=== PATIENT | female | born 1995 ===

== ENCOUNTER 2018-09-07 00:08 | Inpatient (IN) | payer MEDICAID ==
--- NOTE | 2018-09-07 00:43 | C.PDOC ---
History Of Present Illness 23 year old female with PMHx of bipolar disorder presents to the ED complaining of depression. She reports she was feeling depressed and took 20 tablets of Zoloft. Reports SI but denies any HI. Chief Complaint (Nursing): Psychiatric Evaluation History Per: Patient History/Exam Limitations: no limitations Onset/Duration Of Symptoms: Hrs Current Symptoms Are (Timing): Still Present Suicide/Self Injury Attempted (Context): Ingestion Associated Symptoms: Depression, Suicidal Thoughts Past Medical History Reviewed: Historical Data, Nursing Documentation, Vital Signs Vital Signs: Last Vital Signs Temp 98.6 F 09/07/18 00:19 Pulse 97 H 09/07/18 00:19 Resp 20 09/07/18 00:19 BP 123/77 09/07/18 00:19 Pulse Ox 100 09/07/18 00:19 - Medical History PMH: Bipolar Disorder, Personality Disorder Surgical History: No Surg Hx Family History: States: No Known Family Hx - Social History Hx Alcohol Use: Yes Hx Substance Use: No - Immunization History Hx Tetanus Toxoid Vaccination: No Hx Influenza Vaccination: Yes Hx Pneumococcal Vaccination: No Review Of Systems Except As Marked, All Systems Reviewed And Found Negative. Psych: Positive for: Depression, Suicidal ideation Physical Exam - Physical Exam Appears: Non-toxic Skin: Warm, Dry, No Rash Head: Normacephalic Eye(s): bilateral: Normal Inspection Nose: Normal Oral Mucosa: Moist Neck: Normal ROM, Supple Cardiovascular: Rhythm Regular Respiratory: Normal Breath Sounds, No Rales, No Rhonchi, No Wheezing Gastrointestinal/Abdominal: Soft, No Tenderness Extremity: Normal ROM Neurological/Psych: Oriented x3, Normal Speech Gait: Steady ED Course And Treatment - Laboratory Results Result Diagrams: 09/07/18 00:52 09/07/18 00:52 ECG: Interpreted By Nc, Viewed By Nc ECG Rhythm: Sinus Rhythm ECG Interpretation: Normal, No Acute Changes Interpretation Of ECG: NSR, normal tracings. Rate From EC O2 Sat by Pulse Oximetry: 100 (RA) Pulse Ox Interpretation: Normal - Radiology CXR: Interpreted by Me CXR Interpretation: Yes: No Acute Disease, Other (nomal chest film). No: Infiltrates Reevaluation Time: 03:58 (Perwsisted to be alert, stable.) Reassessment Condition: Unchanged (0400H medically cleared for [facility] Medical Decision Making Medical Decision Making: Plan - 1:1 Observation Disposition Discussed With : Meño Mulligan Doctor Will See Patient In The: Hospital Counseled Patient/Family Regarding: Diagnosis - Disposition Disposition: HOSPITALIZED Disposition Time: 05:28 Condition: STABLE Forms: [facility] ([place]) - POA Present On Arrival: None - Clinical Impression Clinical Impression: Bipolar 1 disorder, depressed - Scribe Statement The provider has reviewed the documentation as recorded by the Lucilaibe Yadira Salcido All medical record entries made by the Tammy were at my direction and personally dictated by me. I have reviewed the chart and agree that the record accurately reflects my personal performance of the history, physical exam, medical decision making, and the department course for this patient. I have also personally directed, reviewed, and agree with the discharge instructions and disposition.
[2018-09-07 00:56] LABS: BASO % 0.4 % (0.0-2.0); EOS # 0.1 K/uL (0.0-0.7); EOS % 2.2 % (0.0-4.0); HEMOGLOBIN 11.9 g/dL (11.0-16.0); LYMPH # 1.3 K/uL (1.0-4.3); LYMPH % 21.4 % (20.0-40.0); MEAN CELL VOLUME 85.2 fL (81.0-99.0); MEAN CORPUSCULAR HEMOGLOBIN 28.5 pg (27.0-31.0); MEAN CORPUSCULAR HGB CONC 33.4 g/dL (33.0-37.0); MEAN PLATELET VOLUME 7.8 fL (7.2-11.7); MONO # 0.5 K/uL (0.0-0.8); MONO % 7.9 % (0.0-10.0); NEUT % 68.1 % (50.0-75.0); NRBC % 0.1 % (0.0-2.0); RBC 4.19 Mil/uL (3.80-5.20); RED CELL DISTRIBUTION WIDTH 13.9 % (11.5-14.5)
[2018-09-07 01:10] LABS: ALB/GLOB RATIO 1.4 (1.0-2.1); ALBUMIN 4.4 g/dL (3.5-5.0); ALT/SGPT 17 U/L (9-52); AST/SGOT 18 U/L (14-36); BLOOD UREA NITROGEN 12 mg/dL (7-17); CALCIUM 9.2 mg/dl (8.6-10.4); GFR NON-AFRICAN AMERICAN > 60
[2018-09-07 01:11] LABS: ACETAMINOPHEN < 10.0 ug/mL (10.0-30.0); SALICYLATE < 1.0 mg/dL 1
[2018-09-07 01:16] LABS: BARBITURATES, UR NEGATIVE (NEGATIVE); BENZODIAZEPINES, UR NEGATIVE (NEGATIVE); OPIATES, UR NEGATIVE (NEGATIVE); PHENCYCLIDINE, UR NEGATIVE (NEGATIVE)
[2018-09-07 05:45] LABS: SQUAMOUS EPITHIAL 8 /hpf (0-5); URINE BACTERIA FEW (<OCC); URINE BILIRUBIN NEGATIVE (NEGATIVE); URINE BLOOD NEGATIVE (NEGATIVE); URINE CLARITY Hazy (Clear); URINE COLOR Yellow (YELLOW); URINE GLUCOSE (UA) NORMAL (Normal); URINE LEUKOCYTE ESTERASE TRACE Leu/uL (Negative); URINE PROTEIN NEGATIVE (NEGATIVE); URINE UROBILINOGEN NORMAL mg/dL (0.2-1.0)
--- NOTE | 2018-09-07 06:42 | PCM.BM ---
<Sudhakar Chapin - Last Filed: 09/07/18 06:40> Treatment Plan Problems - Problems identified on initial assessmt DEPRESSION Date Initiated: 09/07/18 Time Initiated: 06:20 Assessment reference: NA Status: Active SUICIDAL IDEATION Date Initiated: 09/07/18 Time Initiated: 06:20 Assessment reference: NA Status: Active Treatment assets and liabiliti Patient Assests: adapts well, cooperative, self-reliant, ADL independent, physically healthy, negotiates basic needs Patient Liabilities: financial problems, poor support system, relationship conflicts - Milieu Protocol Maintain good personal hygiene: daily Encourage regular showers, daily Remind patient to perform daily oral care, daily Assist patient to perform ADL's Maintain personal safety: every shift Educate patient to report safety concerns to staff, every shift Monitor environment for contraband/sharps Medication safety: Monitor for expected outcome, potential side effects: every shift, Assess barriers to learning: every shift, Assess readiness for medication education: every shift <Brook Martinez - Last Filed: 09/09/18 11:14> - Diagnosis (1) Bipolar 1 disorder, depressed Status: Acute Interventions: 09/09/18 11:14 * Assess/adjust medications daily and /or as needed * See patient on an individual basis 7x/week to assess level of manic behaviors and stability * Discuss risks, benefits, side effects and alternatives of medications * <Elizabeth Walter - Last Filed: 09/09/18 13:16> Family Contact Family involvement: Famliy/SO not involved - Goals for Treatment Patient goals for treatment: "I want outpatient treatment." Discharge/Continuing Care - Education Needs Education Needs: Patient Medication, Patient Coping Skills - Discharge Discharge Criteria: Tolerates medication w/o severe side effects, Free of Suicidal thoughts, Reduction of target symptoms Discharge to:: Home, With Family - Treatment Team Participation Discussed with Family/SO: No Was Patient/Family/SO present at Treatment Team Meeting: Yes
--- NOTE | 2018-09-07 09:04 | RAD ---
Date of service: 09/07/2018 HISTORY: Overdose COMPARISON: No prior. TECHNIQUE: Chest PA and lateral FINDINGS: LUNGS: No active pulmonary disease. PLEURA: No significant pleural effusion identified. No pneumothorax apparent. CARDIOVASCULAR: No aortic atherosclerotic calcification present. Normal cardiac size. No pulmonary vascular congestion. OSSEOUS STRUCTURES: No questionable side bending to the right versus mild convex levoscoliosis. VISUALIZED UPPER ABDOMEN: Normal. OTHER FINDINGS: None. IMPRESSION: No active disease.
[2018-09-08 07:16] VITALS: O2SAT 96
[2018-09-08] MEDS ORDERED: Pneumococcal 23-Valent Vaccine IM ONE (10:00)
--- NOTE | 2018-09-09 11:13 | PCM.PYCHPN ---
Psychiatric Progress Note - Psychiatric Progress Note Patient seen today, length of contact: 15 min Patient Chief Complaint: I am feeling depressed.' Problems Identified/Issues Discussed: Patient seen and evaluated, chart reviewed and discussed with the nurse. Pt reports depressed mood, and reports feelings of hopelessness and helplessness. She still reports irritability and agitation. She remained isolated and withdrawn, and confined to his room. She denies any auditory hallucinations, visual hallucinations, or any paranoia. Patient is compliant with medications and denies any side effects. Symptoms are improving but pt needs more time to stabilize. Support and psychoeducation given. Medication Change: Yes Medical Record Reviewed: Yes Mental Status Examination - Cognitive Function Orientation: Person, Place, Situation, Time Memory: Intact Attention: WNL Concentration: Poor Association: WNL Fund of Knowledge: Poor - Mood Mood: Depressed, Anxious - Affect Affect: Constricted - Speech Speech: Soft - Formal Thought Process Formal Thought Process: No Impairment - Suicidal Ideation Suicidal Ideation: No - Homicidal Ideation Homicidal Ideation: No Goal/Treatment Plan - Goal/Treatment Plan Need for Continued Stay: Severe depression anxiety, Severe functional impairment Progress Toward Problem(s) and Goals/Treatment Plan: Bipolar disorder MRE depressed severe without psychotic features Generalized anxiety disorder CBT Psychoeducation Supportive therapy, group therapy, individual therapy Olanzapine 5 mg PO HS Trazodone 50 mg by mouth daily at bedtime Hydroxyzine 25 mg by mouth every 6 hours when necessary Gabapentin 100 mg po TID Prozac 20 mg PO daily - Smoking Cessation Smoking Cessation Initiated: No
--- NOTE | 2018-09-09 13:50 | CARD ---
APPROVED REPORT Date of service: 09/07/2018 EKG Measurement Heart [id number] <Conclusion> Normal sinus rhythm Normal ECG
--- NOTE | 2018-09-09 20:53 | PCM.PSYCH ---
Initial Psychiatric Evaluation - Initial Psychiatric Evaluation Legal Status: Capacity Chief Complaint (in patient's own words): I AM MISERABLE Patient's Reaction to Hospitalization: I FEEL SAFE HERE. History of Present Illness and Precipitating Events: PT IS A 23 YEAR OLD ESTRANGED FROM DOMICILED WITH GIRL FRIEND WORKING A [employer] WHO OVERDOSED ON 40 PILLS OF ZOLOFT. PT IS ANHEDONIC, ANERGIC AFD HAS AVOLITION. PT HAS HAD THREE PREVIOUS HOSPITALIZATION USUALLY FOR SUICIDAL IDEATION. PT HAS BEEN FOR SEVERAL MONTHS AND ABOUT A YEAR. PT LEFT HER BECAUSE HER CHEATED ON HER. PT FEELS SHEB I9S SELLING HER SELF SHORT PT STATES SHE IS AFRAID TO LIVE BUT ALSO AFRAID TO . PAST PSYCH HX PT HAS HAD 3 PREVIOUS HOSPITALIZATION USUALLY FOR SUICIDAL IDEATION FAMILY PSYCH HX AUNT IS BIPOLAR. GREAT AUNT IS BIPOLAR MOTHER HAS OCD FATHER HAS ANGER ISSUES LEGAL HX NONE SUBSTANCE ABUSE HISTORY NONE HX NONE MEDICAL HX NONE SOCIAL HISTORY MOTHER AND FATHER BEFORE PT WAS BORN HAS A HALF SISTER AND TWO STEP BROTHERS PT GRADUATED HIGH SCHOOL SHE HAS NO CHILDREN LEGAL NONE SUBSTANCE ABUSE NOTHING Current Medications: Active Medications Generic Name Dose Route Start Last Admin Trade Name Freq PRN Reason Stop Dose Admin Fluoxetine HCl 20 mg 09/08/18 10:00 09/09/18 10:05 Prozac PO 20 mg DAILY MARITZA Administration Hydroxyzine HCl 25 mg 09/09/18 12:00 Atarax PO Q6 PRN Anxiety Olanzapine 5 mg 09/09/18 22:00 Zyprexa PO HS [facility] Past Psychiatric History - Past Psychiatric History Prior Professional Help: SEE HPI Pertinent Medical Hx (Current Medical&Sleep Prob, Allergies): Allergies Allergy/AdvReac Type Severity Reaction Status Date / Time amoxicillin [From Augmentin] Allergy Verified 09/07/18 00:24 clavulanic acid Allergy Verified 09/07/18 00:24 [From Augmentin] No Known Home Med 09/07/18 Review of Systems - EENT Eyes: UNREMARKABLE Ears: UNREMARKABLE Nose/Mouth/Throat: UNREMARKABLE - Breasts Breasts: UNREMARKABLE - Cardiovascular Cardiovascular: UNREMARKABLE - Respiratory Respiratory: UNREMARKABLE - Gastrointestinal Gastrointestinal: UNREMARKABLE - Genitourinary Genitourinary: UNREMARKABLE - Reproductive: Female Reproductive:Female: UNREMARKABLE - Menstruation Menstruation: UNREMARKABLE - Musculoskeletal Musculoskeletal: UNREMARKABLE - Integumentary Integumentary: UNREMARKABLE - Neurological Neurological: UNREMARKABLE - Psychiatric Psychiatric: Abnormal Sleep Pattern, Anhedonia, Anxiety, Depression, Hopelessness, Suicidal Ideation - Endocrine Endocrine: UNREMARKABLE - Hematologic/Lymphatic Hematologic: UNREMARKABLE Mental Status Examination - Personal Presentation Personal Presentation: Looks younger than stated age - Affect Affect: Constricted - Motor Activity Motor Activity: Calm - Reliability in Providing Information Reliability in Providing Information: Good - Speech Speech: Organized, Relevant, Coherent - Mood Mood: Depressed, Anxious - Formal Thought Process Formal Thought Process: No Impairment - Cognitive Functions Orientation: Person, Place, Situation, Time Sensorium: Alert Attention/Concentration: Attentive Abstract Thinking: As evidence by literal perception of proverbs Estimate of Intelligence: Average Judgement: Intact, as evidence by: Good judgement Memory: Recent intact, as evidence by: 3/3 object recall, Remote intact, as evidenced by: Abilit to recall sig. life events - Risk Risk: Suicidal - Strength & Assets Inventory Strength & Assets Inventory: Intelligence, Education, Employment history, Cooperative - Limitations Limitations: Other DSM 5 DX - DSM 5 DSM 5 Diagnosis: BIPOAR DISORDER DEPRESSED TYPE PROZAC [place] CBT SUPPORTIVE PSYCHOTHERAPY GROUP MILIEU RECREATIONBAL THERAPY - Recommended/Plan of Treatment Treatment Recommendations and Plan of Treatment: SEE ABOVE Prognosis: FAIR Discharge Plan and Discharge Criteria: NO LONGER SUICIDAL TIME 34 MINUTES - Smoking Cessation Smoking Cessation Initiated: No
--- NOTE | 2018-09-09 20:54 | PCM.PSYCH ---
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 PT HAS BEEN ON ZOLOFT AND STATES THAT IT CAUSES HER PALPITAYIONS AND ANXIETY PT HAS BEEN FOR ABOUT ONE YEAR BUT HER CHEATED ON CHELSIE. PT STATES THAT HER HAD CHEATED ON OTHERS BUT SHE WAS SO MUCH IN LOVE SHE IGNORED HER 'S PAST BEHAVIOR PT NOW LIVES WITH A NEW GIRL FRIEND. PT HAS NO CHILDREN. SHE FEELS SHE HAS NON ENERGY, LITTLE MOTIVATION AND IS ANHEDONIC. PT STATES SHE IS AFRAID ODYING BUT ALSO AFRAID OF LIVING. SHE FEELS MISERABLRE PAST PSYCH HX PT HS HAD THREE PREVIOUS HOSPITALIZATION FOR DEPRESSION AND SUICIDAL IDEATION PST PSYCH MEDS PT STATES TAHT PROZAC IS THE MEDICATION THAT HAS WORKED IN THE PAST FAMILY PSYCH HX AUNT IS BIPOLAR GREAT AUNT IS BIPOLAR MOTHER HAS OCD FATHER HAS ANGER ISSUES SOCIAL HX MOTHER AND FATHER BE Current Medications: Active Medications Generic Name Dose Route Start Last Admin Trade Name Freq PRN Reason Stop Dose Admin Fluoxetine HCl 20 mg 09/08/18 10:00 09/09/18 10:05 Prozac PO 20 mg DAILY MARITZA Administration Hydroxyzine HCl 25 mg 09/09/18 12:00 Atarax PO Q6 PRN Anxiety Olanzapine 5 mg 09/09/18 22:00 Zyprexa PO HS [facility] Past Psychiatric History - Past Psychiatric History Pertinent Medical Hx (Current Medical&Sleep Prob, Allergies): Allergies Allergy/AdvReac Type Severity Reaction Status Date / Time amoxicillin [From Augmentin] Allergy Verified 09/07/18 00:24 clavulanic acid Allergy Verified 09/07/18 00:24 [From Augmentin] No Known Home Med 09/07/18
--- NOTE | 2018-09-09 21:06 | PCM.PYCHPN ---
Psychiatric Progress Note - Psychiatric Progress Note Patient seen today, length of contact: 15 min Patient Chief Complaint: I AM MISERABLE Problems Identified/Issues Discussed: PT SEEN AND EXAMINED DISCUSSED WITH STAFF DISCUSSED WITH PT ABOUT MAKING DECISIONS ABOUT HOW TO DECIDE WHAT IS BEST FOR HER, SHE IS HER AND IS GOING VERY SLOWLY WITH HER NEW LOVE Medical Problems: NOTHING ACUTE Diagnostic Results: REVIEWED Medication Change: No Medical Record Reviewed: Yes Mental Status Examination - Cognitive Function Orientation: Person, Place, Situation, Time Memory: Intact Attention: WNL Concentration: WNL Association: WNL Fund of Knowledge: WNL - Mood Mood: Depressed, Anxious - Speech Speech: Appropriate - Formal Thought Process Formal Thought Process: No Impairment - Suicidal Ideation Suicidal Ideation: No - Homicidal Ideation Homicidal Ideation: No Goal/Treatment Plan - Goal/Treatment Plan Need for Continued Stay: Discharge may exacerbated symptoms Progress Toward Problem(s) and Goals/Treatment Plan: BIPOLAR DISORDER MRE DEPRESSED SEVERE WITHOUT PYCHOTIC FEATURES PROZAC [place] CBT GROUPS SUPPORTIVE PSYCHOTHERAPY - Smoking Cessation Smoking Cessation Initiated: No
--- NOTE | 2018-09-11 00:55 | PCM.PYCHPN ---
Psychiatric Progress Note - Psychiatric Progress Note Patient seen today, length of contact: 15 min Patient Chief Complaint: I am feeling depressed.' Problems Identified/Issues Discussed: Patient seen and evaluated, chart reviewed and discussed with the nurse. Per staff patient remained isolated and withdrawn. Pt still reports depressed mood, and reports feelings of hopelessness and helplessness. She remained tearful during the interview. She denies any auditory hallucinations, visual hallucinations, or any paranoia. Patient is compliant with medications and denies any side effects. Symptoms are improving but pt needs more time to stabilize. Support and psychoeducation given. Medication Change: Yes Medical Record Reviewed: Yes Mental Status Examination - Cognitive Function Orientation: Person, Place, Situation, Time Memory: Intact Attention: WNL Concentration: Poor Association: WNL Fund of Knowledge: Poor - Mood Mood: Depressed, Anxious - Affect Affect: Constricted - Speech Speech: Soft - Formal Thought Process Formal Thought Process: No Impairment - Suicidal Ideation Suicidal Ideation: No - Homicidal Ideation Homicidal Ideation: No Goal/Treatment Plan - Goal/Treatment Plan Need for Continued Stay: Severe depression anxiety, Severe functional impairment Progress Toward Problem(s) and Goals/Treatment Plan: Bipolar disorder MRE depressed severe without psychotic features Generalized anxiety disorder CBT Psychoeducation Supportive therapy, group therapy, individual therapy Olanzapine 5 mg PO HS Trazodone 50 mg by mouth daily at bedtime Hydroxyzine 25 mg by mouth every 6 hours when necessary Gabapentin 100 mg po TID Prozac 20 mg PO daily - Smoking Cessation Smoking Cessation Initiated: No
--- NOTE | 2018-09-11 10:20 | PCM.PYCHPN ---
Psychiatric Progress Note - Psychiatric Progress Note Patient seen today, length of contact: 15 min Patient Chief Complaint: I am feeling little better.' Problems Identified/Issues Discussed: Patient seen and evaluated, chart reviewed and discussed with the nurse. Per staff patient remained isolated and withdrawn. Pt still reports depressed mood, but reports some improvement in the feelings of hopelessness and helplessness. She denies any auditory hallucinations, visual hallucinations, or any paranoia. Patient is compliant with medications and denies any side effects. Symptoms are improving but pt needs more time to stabilize. Support and psychoeducation given. Medication Change: Yes Medical Record Reviewed: Yes Mental Status Examination - Cognitive Function Orientation: Person, Place, Situation, Time Memory: Intact Attention: WNL Concentration: Poor Association: WNL Fund of Knowledge: Poor - Mood Mood: Depressed, Anxious - Affect Affect: Constricted - Speech Speech: Soft - Formal Thought Process Formal Thought Process: No Impairment - Suicidal Ideation Suicidal Ideation: No - Homicidal Ideation Homicidal Ideation: No Goal/Treatment Plan - Goal/Treatment Plan Need for Continued Stay: Severe depression anxiety, Severe functional impairment Progress Toward Problem(s) and Goals/Treatment Plan: Bipolar disorder MRE depressed severe without psychotic features Generalized anxiety disorder CBT Psychoeducation Supportive therapy, group therapy, individual therapy Olanzapine 5 mg PO HS Trazodone 50 mg by mouth daily at bedtime Hydroxyzine 25 mg by mouth every 6 hours when necessary Gabapentin 100 mg po TID Increase Prozac 40 mg PO daily
[2018-09-12 06:45] VITALS: RESP 20
--- NOTE | 2018-09-12 13:54 | PCM.PYCHPN ---
Psychiatric Progress Note - Psychiatric Progress Note Patient seen today, length of contact: 15 min Patient Chief Complaint: I am feeling little better.' Problems Identified/Issues Discussed: Patient seen and evaluated, chart reviewed and discussed with the nurse. Per staff patient remained isolated and withdrawn. Pt still reports depressed mood, but reports some improvement in the feelings of hopelessness and helplessness. She reports an improvement in her sleep and appetite. She denies any auditory hallucinations, visual hallucinations, or any paranoia. Patient is compliant with medications and denies any side effects. Symptoms are improving but pt needs more time to stabilize. Support and psychoeducation given. Medication Change: Yes Medical Record Reviewed: Yes Mental Status Examination - Cognitive Function Orientation: Person, Place, Situation, Time Memory: Intact Attention: WNL Concentration: Poor Association: WNL Fund of Knowledge: Poor - Mood Mood: Depressed, Anxious - Affect Affect: Constricted - Speech Speech: Soft - Formal Thought Process Formal Thought Process: No Impairment - Suicidal Ideation Suicidal Ideation: No - Homicidal Ideation Homicidal Ideation: No Goal/Treatment Plan - Goal/Treatment Plan Need for Continued Stay: Severe depression anxiety, Severe functional impairment Progress Toward Problem(s) and Goals/Treatment Plan: Bipolar disorder MRE depressed severe without psychotic features Generalized anxiety disorder CBT Psychoeducation Supportive therapy, group therapy, individual therapy DC Olanzapine 5 mg PO HS Trazodone 50 mg by mouth daily at bedtime Hydroxyzine 25 mg by mouth every 6 hours when necessary Gabapentin 100 mg po BID Increase Prozac 60 mg PO daily
--- NOTE | 2018-09-13 17:53 | PCM.PYCHPN ---
Psychiatric Progress Note - Psychiatric Progress Note Patient seen today, length of contact: 17 min Patient Chief Complaint: "I feel better" Medication Change: Yes Medical Record Reviewed: Yes Mental Status Examination - Cognitive Function Orientation: Person, Place, Situation, Time Memory: Intact Attention: WNL Concentration: Poor Association: WNL Fund of Knowledge: Poor - Mood Mood: Depressed, Anxious - Affect Affect: Constricted - Speech Speech: Soft - Formal Thought Process Formal Thought Process: No Impairment - Suicidal Ideation Suicidal Ideation: No - Homicidal Ideation Homicidal Ideation: No Goal/Treatment Plan - Goal/Treatment Plan Need for Continued Stay: Severe depression anxiety, Severe functional impairment
--- NOTE | 2018-09-15 23:38 | PCM.PYCHPN ---
Psychiatric Progress Note - Psychiatric Progress Note Patient seen today, length of contact: 15 minutes Patient Chief Complaint: And feeling much better. Problems Identified/Issues Discussed: Patient seen, chart reviewed, case discussed with the staff. Issues related to illness and treatment were discussed with the patient and staff. Reported compliant with treatment with no adverse effects. Tolerating treatment very well. Awake, alert and oriented x3. Calm and cooperative with good eye contact. Mood reported as depressed. Affect appropriate. Treatment discussed with the patient. Aftercare discussed with the patient. Denied any delusions, auditory or visual hallucinations, suicidal ideations or homicidal ideations at the time of evaluation. Medical Problems: None reported Diagnostic Results: Reviewed DSM 5 Symptoms Update: Some improvement with treatment Medication Change: No Medical Record Reviewed: Yes Mental Status Examination - Cognitive Function Orientation: Person, Place, Situation, Time Memory: Intact Attention: WNL Concentration: WNL Association: WN Fund of Knowledge: [facility] Decription of patient's judgement and insights: Fair - Mood Mood: Depressed (Much less than before) - Affect Affect: Other (Appropriate) - Speech Speech: Soft - Formal Thought Process Formal Thought Process: No Impairment Psychotic Thoughts and Behaviors: None - Suicidal Ideation Suicidal Ideation: No - Homicidal Ideation Homicidal Ideation: No Goal/Treatment Plan - Goal/Treatment Plan Need for Continued Stay: Remain at risks for inpatient hospitalization, Discharge may exacerbated symptoms, Severe functional impairment Progress Toward Problem(s) and Goals/Treatment Plan: Improving with treatment. Patient education. Supportive therapy. Continue treatment as before. Patient will go to [facility] for follow-up care after discharge from the hospital. Estimated Date of D/C: 09/16/18 - Smoking Cessation Smoking Cessation Initiated: No Reason for not providing: Patient does not smoke cigarettes
[2018-09-16 09:41] VITALS: BP 110/67; PULSE 101; TEMP 98.8
--- NOTE | 2018-09-16 21:04 | PCM.PYCHDC ---
Mental Status Examination - Mental Status Examination Orientation: Person, Place, Situation, Time Memory: Intact Mood: Neutral Affect: Other (Appropriate) Speech: Appropriate Attention: WNL Concentration: WNL Association: WNL Fund of Knowledge: WNL Formal Thought Process: No Impairment Description of patient's judgement and insight: Fair Psychotic Thoughts and Behaviors: None Suicidal Ideation: No Current Homicidal Ideation?: No Discharge Summary - Discharge Note Reason for Hospitalization: Bipolar disorder depressed Laboratory Data: Reviewed Consultations:: List each consultation separately and include: 1. Reason for request. 2. Findings. 3. Follow-up Summary of Hospital Course include:: 1. Description of specific treatment plan utilized for patients during their course of treatmen. 2. Summarize the time- course for resolution of acute symptoms and/or regressed behaviors. 3. Describe issues identified and worked on during hospitalization. 4. Describe medication utilized. 5. Describe medical problems identified and treated. 6. 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 PT IS ANHEDONIC, ANERGIC AFD HAS AVOLITION. PT HAS HAD THREE PREVIOUS HOSPITALIZATION USUALLY FOR SUICIDAL IDEATION. PT HAS BEEN FOR SEVERAL MONTHS AND ABOUT A YEAR. PT LEFT HER BECAUSE HER CHEATED ON HER. PT FEELS SHEB I9S SELLING HER SELF SHORT PT STATES SHE IS AFRAID TO LIVE BUT ALSO AFRAID TO . PAST PSYCH HX PT HAS HAD 3 PREVIOUS HOSPITALIZATION USUALLY FOR SUICIDAL IDEATION FAMILY PSYCH HX AUNT IS BIPOLAR. GREAT AUNT IS BIPOLAR MOTHER HAS OCD FATHER HAS ANGER ISSUES LEGAL HX NONE SUBSTANCE ABUSE HISTORY NONE HX NONE MEDICAL HX NONE SOCIAL HISTORY MOTHER AND FATHER BEFORE PT WAS BORN HAS A HALF SISTER AND TWO STEP BROTHERS PT GRADUATED HIGH SCHOOL SHE HAS NO CHILDREN LEGAL NONE SUBSTANCE ABUSE NOTHING During her stay in the hospital During her stay in the hospital patient was treated with Prozac and other supportive and as needed medications. Patient was attending groups and other activities on the unit. With above treatment patient started feeling better. Today patient was stable and ready for discharge from the hospital. At the time of evaluation and discharge, patient was stable. Patient was awake alert oriented x3, had no delusions, no auditory or visual hallucinations, no suicidal ideations or homicidal ideations. Patient was discharged in a stable condition. - Final Diagnosis (DSM 5) Condition upon Discharge: STABLE Disposition: HOME/ ROUTINE Follow-up Treatment Plan: Patient will go to [facility] follow-up care after discharge from the hospital. Prescriptions/Medication Reconciliation: Citalopram Hydrobromide [Citalopram HBr] 40 mg PO DAILY 30 Days #30 tablet RX: Gabapentin [Neurontin] 100 mg PO BID #60 cap RX: traZODone [Desyrel] 50 mg PO HS #30 tab - Smoking Cessation Smoking Cessation Medication prescribed: No Reason for not providing: Patient does not smoke cigarettes. - Antipsychotic Medications Pt discharged on 2 or more routine antipsychotic medications: No
== END 2018-09-16 10:30 | disposition home or self-care (01) ==
LOC: C.ER 00:08 → C.5E 05:31
PROVIDERS: ADMIT Psychiatry & Neurology Psychiatry; ATTEND Psychiatry & Neurology Psychiatry
PROC: GZ3ZZZZ Medication Management (ICD-10-PCS; principal; 2018-09-07)
PROC: GZHZZZZ Group Psychotherapy (ICD-10-PCS; 2018-09-07)
PROC: GZ56ZZZ Individual Psychotherapy, Supportive (ICD-10-PCS; 2018-09-07)
DX: F31.4 Bipolar disorder, current episode depressed, severe, without psychotic features (principal); R45.851 Suicidal ideations; F60.9 Personality disorder, unspecified; Z81.8 Family history of other mental and behavioral disorders